=== PATIENT | female | born 1975 | race Caucasian/White ===

== ENCOUNTER → 2017-02-16 | Outpatient (REF) | payer OTHER | LOC: M SFHCWAGY 15:02 | PROVIDERS: ATTEND Family Medicine | DX: Z12.4 Encounter for screening for malignant neoplasm of cervix (principal) ==

== ENCOUNTER → 2017-02-16 | Outpatient (CLI) | payer BC, OTHER ==
--- NOTE | 2017-02-16 16:04 | REPMRS ---
Patient History The patient states she has not had a clinical breast exam in over a year. Patient is postmenopausal. No known family history of cancer. Digital Woman Screen Mammo: February 16, 2017 - Exam #: [id number] Bilateral CC and MLO view(s) were taken. Technologist: Esther Ruff, Technologist Prior study comparison: December 03, 2015, digital woman screen mammo performed at [facility]. FINDINGS: The breast tissue is heterogeneously dense. This may lower the sensitivity of mammography. This mammogram was interpreted with the aid of an FDA-approved computer-aided dectection system. A. Negative x-ray reports should not delay biopsy if a dominant or clinically suspicious mass is present. B. Not all cancers are identified by mammography. C. Adenosis and dense breast may obscure an underlying neoplasm. No significant changes when compared with prior studies. ASSESSMENT: BI-RADS/ACR category 1 mammogram. Negative. Recommendation Routine screening mammogram in 1 year. Electronically Signed By: Dameon De La O M.D. 02/16/17 [id number]
== END ==
LOC: M WHC 14:15
PROVIDERS: ATTEND Family Medicine
DX: Z12.31 Encounter for screening mammogram for malignant neoplasm of breast (principal)

== ENCOUNTER → 2018-01-31 | Outpatient (REF) | payer OTHER ==
[2018-01-31 15:42] LABS: HEMATOCRIT 44.7 % (36.0-47.0); HEMOGLOBIN 14.9 g/dl (12.0-15.5); MEAN CORPUSCULAR HEMOGLOBIN 32.4 pg (27.0-33.0); MEAN CORPUSCULAR HGB CONC 33.3 g/dl (32.0-36.5); MEAN CORPUSCULAR VOLUME 97.2 fl (80.0-96.0); PLATELET COUNT, AUTOMATED 297 10^3/uL (150-450); RED CELL DISTRIBUTION WIDTH 14.1 % (11.5-14.5); WHITE BLOOD COUNT 11.3 10^3/uL (4.0-10.0)
[2018-01-31 16:11] LABS: FOLLICLE STIMULATING HORMONE 9.5 mIU/mL
== END ==
LOC: M SFHCWAGY 15:26
DX: E28.310 Symptomatic premature menopause (principal); N95.0 Postmenopausal bleeding

== ENCOUNTER → 2018-02-04 | Outpatient (CLI) | payer BC | LOC: M WHC 10:55 | DX: N95.0 Postmenopausal bleeding (principal) | CPT/HCPCS: 76830 ==

== ENCOUNTER → 2018-02-08 | Outpatient (REF) | payer OTHER | LOC: M SFHCWAGY 11:48 | DX: N95.0 Postmenopausal bleeding (principal) ==

== ENCOUNTER → 2018-11-26 | Outpatient (CLI) | payer BC, OTHER ==
--- NOTE | 2018-11-26 13:14 | REP ---
CHEST, TWO VIEWS: Two views of the chest are performed and compared to prior studies, most recently 02/16/2016. There is mild cardiomegaly. I see no acute infiltrate. Chronic interstitial prominence is stable in the lung bases bilaterally. The mediastinal silhouette is unchanged. Multiple metallic clips are seen in the upper abdomen. IMPRESSION: Mild cardiomegaly. No acute infiltrate. Electronically Signed by Dameon Avendaño MD 11/27/2018 04:39 P
== END ==
LOC: M LRY 12:36
PROVIDERS: ATTEND Nurse Practitioner Family
DX: R06.2 Wheezing (principal); I51.7 Cardiomegaly

== ENCOUNTER → 2018-12-19 | Outpatient (REF) | payer OTHER ==
[2018-12-19 16:06] LABS: ALBUMIN 3.6 GM/DL (3.2-5.2); ALT/SGPT 27 U/L (12-78); BILIRUBIN,TOTAL 0.4 MG/DL (0.2-1.0); BLOOD UREA NITROGEN 15 MG/DL (7-18); CALCIUM LEVEL 8.9 MG/DL (8.5-10.1); CARBON DIOXIDE LEVEL 29 MEQ/L (21-32); CHLORIDE LEVEL 106 MEQ/L (98-107); CREATININE FOR GFR 0.62 MG/DL (0.55-1.30); GLOMERULAR FILTRATION RATE > 60.0 (>58); GLUCOSE, FASTING 88 MG/DL (70-100); POTASSIUM SERUM 4.6 MEQ/L (3.5-5.1); SODIUM LEVEL 140 MEQ/L (136-145); TOTAL PROTEIN 6.1 GM/DL (6.4-8.2)
[2018-12-19 16:16] LABS: HEMOGLOBIN A1c 5.5 %
== END ==
LOC: M LAB REF 15:45
PROVIDERS: ATTEND Nurse Practitioner Family
DX: R73.09 Other abnormal glucose (principal)

== ENCOUNTER → 2019-01-22 | Outpatient (REF) | payer OTHER | LOC: M LAB REF 12:13 | PROVIDERS: ATTEND Nurse Practitioner Family | DX: D35.02 Benign neoplasm of left adrenal gland (principal) ==

== ENCOUNTER → 2019-01-29 | Outpatient (REF) | payer OTHER | LOC: M LAB REF 11:47 | PROVIDERS: ATTEND Nurse Practitioner Family | DX: D35.02 Benign neoplasm of left adrenal gland (principal) ==

== ENCOUNTER → 2019-02-12 | Outpatient (REF) | payer OTHER | LOC: M LAB REF 12:35 | PROVIDERS: ATTEND Nurse Practitioner Family | DX: D35.02 Benign neoplasm of left adrenal gland (principal) ==

== ENCOUNTER → 2019-09-28 | Outpatient (CLI) | payer BC, OTHER ==
--- NOTE | 2019-09-28 10:23 | REP ---
CHEST, TWO VIEWS: COMPARISON: 11/26/2018 Mild, scattered interstitial opacities are stable. No new infiltrate is seen. Heart is upper limits of normal in size. Mediastinal silhouette is unchanged. There are mild degenerative changes of the spine. IMPRESSION: Stable, chronic findings without evidence of acute infiltrate. Electronically Signed by Dameon Avendaño MD 09/28/2019 06:32 P
== END ==
LOC: M LRY 09:32
PROVIDERS: ATTEND Nurse Practitioner Family
DX: J44.1 Chronic obstructive pulmonary disease with (acute) exacerbation (principal)

== ENCOUNTER → 2020-01-15 | Outpatient (REF) | payer OTHER | LOC: M LAB REF 14:26 | PROVIDERS: ATTEND Nurse Practitioner Family | DX: D35.02 Benign neoplasm of left adrenal gland (principal) ==

== ENCOUNTER → 2020-01-22 | Outpatient (REF) | payer OTHER | LOC: M LAB REF 14:55 | PROVIDERS: ATTEND Internal Medicine Endocrinology, Diabetes & Metabolism | DX: D35.02 Benign neoplasm of left adrenal gland (principal) ==

== ENCOUNTER → 2020-07-12 | Outpatient (CLI) | payer OTHER ==
[2020-07-12 17:11] LABS: ALBUMIN 3.7 GM/DL (3.2-5.2); ALT/SGPT 33 U/L (12-78); BILIRUBIN,TOTAL 0.3 MG/DL (0.2-1.0); BLOOD UREA NITROGEN 15 MG/DL (7-18); CALCIUM LEVEL 9.7 MG/DL (8.5-10.1); CARBON DIOXIDE LEVEL 29 MEQ/L (21-32); CHLORIDE LEVEL 105 MEQ/L (98-107); CHOLESTEROL LEVEL 134 MG/DL (<200); CHOLESTEROL RISK RATIO 2.093 (<5); CREATININE FOR GFR 0.75 MG/DL (0.55-1.30); GLOMERULAR FILTRATION RATE > 60.0 (>58); GLUCOSE, FASTING 99 MG/DL (70-100); HDL CHOLESTEROL 64 MG/DL (>40); LDL CHOLESTEROL 45 MG/DL (<100); NON-HDL-C 70 MG/DL; POTASSIUM SERUM 4.1 MEQ/L (3.5-5.1); SODIUM LEVEL 140 MEQ/L (136-145); TOTAL PROTEIN 6.9 GM/DL (6.4-8.2); TRIGLYCERIDES LEVEL 127 MG/DL (<150)
[2020-07-12 18:17] LABS: HEMOGLOBIN A1c 5.8 %
== END ==
LOC: M WUC 11:45
PROVIDERS: ATTEND Student in an Organized Health Care Education/Training Program
DX: I10 Essential (primary) hypertension (principal); Z87.898 Personal history of other specified conditions

== ENCOUNTER → 2020-09-08 | Outpatient (CLI) | payer OTHER | LOC: M WUC 09:17 | PROVIDERS: ATTEND Internal Medicine Endocrinology, Diabetes & Metabolism | DX: D35.02 Benign neoplasm of left adrenal gland (principal) ==

== ENCOUNTER → 2020-09-20 | Outpatient (CLI) | payer OTHER | LOC: M WUC 09:42 | PROVIDERS: ATTEND Internal Medicine Endocrinology, Diabetes & Metabolism | DX: D35.02 Benign neoplasm of left adrenal gland (principal) ==

== ENCOUNTER → 2020-12-21 | Outpatient (CLI) | payer BC, OTHER ==
--- NOTE | 2020-12-21 14:03 | REP ---
INDICATION: SOB, COPD WITH EXACERBATION COMPARISON: 09/28/2019 TECHNIQUE: PA and lateral. FINDINGS: The mediastinum and cardiac silhouette are normal. The lung machado are clear and without acute consolidation, effusion, or pneumothorax. The skeletal structures are intact and normal. IMPRESSION: No acute cardiopulmonary process. If the patient remains symptomatic consider chest CT for further investigation. <Electronically signed by Aleks Gatica > 12/21/20 [id number]
[2020-12-21 16:35] LABS: BASO # 0.1 10^3/uL (0.0-0.2); BASO % 0.6 % (0.0-1.0); EOS % 0.3 % (0.0-3.0); HEMOGLOBIN 14.7 g/dl (12.0-15.5); LYMPH # 1.6 10^3/uL (1.5-5.0); LYMPH % 12.6 % (24.0-44.0); MEAN CORPUSCULAR HEMOGLOBIN 31.2 pg (27.0-33.0); MEAN CORPUSCULAR VOLUME 97.7 fl (80.0-96.0); MONO # 1.1 10^3/uL (0.0-0.8); MONO % 8.7 % (2.0-8.0); NEUTROPHILS # 9.7 10^3/uL (1.5-8.5); NEUTROPHILS % 77.3 % (36.0-66.0); PLATELET COUNT, AUTOMATED 281 10^3/uL (150-450); RED BLOOD COUNT 4.71 10^6/uL (4.00-5.40); WHITE BLOOD COUNT 12.5 10^3/uL (4.0-10.0)
[2020-12-21 16:58] LABS: BLOOD UREA NITROGEN 6 MG/DL (7-18); CALCIUM LEVEL 9.1 MG/DL (8.5-10.1); CARBON DIOXIDE LEVEL 26 MEQ/L (21-32); CHLORIDE LEVEL 106 MEQ/L (98-107); CREATININE FOR GFR 0.58 MG/DL (0.55-1.30); GLOMERULAR FILTRATION RATE > 60.0 (>58); GLUCOSE, FASTING 100 MG/DL (70-100); SODIUM LEVEL 139 MEQ/L (136-145)
== END ==
LOC: M WUC 13:26
PROVIDERS: ATTEND Nurse Practitioner Family
DX: J44.1 Chronic obstructive pulmonary disease with (acute) exacerbation (principal); R06.02 Shortness of breath

== ENCOUNTER 2020-12-22 15:13 | Emergency (ER) | payer BC, OTHER ==
[~2020-12-22] VITALS: Ht 152.4 cm; Wt 95.6 kg
[2020-12-22] MEDS ORDERED: FUROSEMIDE 40MG/4ML VIAL (J1940) IV ONE (17:05)
[2020-12-22 17:29] LABS: BASO % 0.2 % (0.0-1.0); EOS % 0.1 % (0.0-3.0); HEMATOCRIT 45.2 % (36.0-47.0); HEMOGLOBIN 14.8 g/dl (12.0-15.5); LYMPH # 1.3 10^3/uL (1.5-5.0); LYMPH % 8.7 % (24.0-44.0); MEAN CORPUSCULAR HEMOGLOBIN 31.5 pg (27.0-33.0); MEAN CORPUSCULAR HGB CONC 32.7 g/dl (32.0-36.5); MEAN CORPUSCULAR VOLUME 96.2 fl (80.0-96.0); MONO # 1.1 10^3/uL (0.0-0.8); NEUTROPHILS # 12.8 10^3/uL (1.5-8.5); NEUTROPHILS % 83.5 % (36.0-66.0); PLATELET COUNT, AUTOMATED 321 10^3/uL (150-450); WHITE BLOOD COUNT 15.3 10^3/uL (4.0-10.0)
[2020-12-22 17:33] LABS: ALBUMIN 3.4 GM/DL (3.2-5.2); ALT/SGPT 48 U/L (12-78); BILIRUBIN,DIRECT 0.1 MG/DL (0.0-0.2); BILIRUBIN,TOTAL 0.3 MG/DL (0.2-1.0); CK-MB VALUE MASS < 1.0 NG/ML (<3.6); CPK CREATINE PHOSPHOKINASE 77 U/L (26-192); NT-PRO BNP 69 PG/ML (<125); THYROID STIMULATING HORMONE 0.663 uIU/ML (0.358-3.740); THYROXINE (T4) 6.2 UG/DL (4.5-12.0); TOTAL PROTEIN 7.1 GM/DL (6.4-8.2); TROPONIN I < 0.02 NG/ML (< 0.10)
[2020-12-22] MEDS ORDERED: ISOVUE-370 76% 100ML VIAL As Ordered ONE (17:50)
--- NOTE | 2020-12-22 19:02 | REPVR ---
PROCEDURE INFORMATION: Exam: CTA Chest With Contrast Exam date and time: 12/22/2020 6:09 PM Age: 45 years old Clinical indication: Other: SOB; Elevated dimer; R/O pe TECHNIQUE: Imaging protocol: Computed tomographic angiography of the chest with contrast. 3D rendering (Not supervised by radiologist): MIP and/or 3D reconstructed images were created by the technologist. Radiation optimization: All CT scans at this facility use at least one of these dose optimization techniques: automated exposure control; mA and/or kV adjustment per patient size (includes targeted exams where dose is matched to clinical indication); or iterative reconstruction. Contrast material: ISOVUE 370; Contrast volume: 75 ml; Contrast route: INTRAVENOUS (IV); COMPARISON: CR CHEST 2 VIEW 12/21/2020 1:50 PM FINDINGS: Pulmonary arteries: No focal pulmonary artery filling defect to suggest acute pulmonary embolus. Aorta: No thoracic aortic aneurysm or dissection. Lungs: Pulmonary vascular/interstitial pattern does not suggest active pulmonary edema. Emphysematous changes are present within the lungs, and there are patchy ground-glass opacity suggesting multifocal bilateral infectious or inflammatory process without consolidation. No dominant lung mass or endobronchial lesion. Pleural spaces: No pleural effusion or pneumothorax. Heart: No overt cardiac enlargement or abnormal volume of pericardial fluid. Lymph nodes: Small, nonspecific mediastinal nodes are present. Adrenal glands: Left adrenal mass measuring 4 cm consistent with a fat containing benign adenoma. Hounsfield unit density is 4 Hounsfield units Bones/joints: Bony structures show no acute fracture or destructive process. Soft tissues: Unremarkable. IMPRESSION: 1. No evidence of acute pulmonary embolus. 2. Emphysematous changes in the lungs, and subtle bilateral multifocal inflammatory or infectious airspace process. Atypical pneumonia could give this appearance. Electronically signed by: Mike Bell On 12/22/2020 19:02:09 PM
[2020-12-22 19:56] VITALS: BP 129/70
--- NOTE | 2020-12-23 05:49 | ECGEPIP ---
[facility] - ED Test Date: 2020-12-22 Pat Name: CARMEN FITCH Department: Room: - Gender: Female [employer]: : 1975 Requested By: CARMELO HOPKINS Order Number: [id number] Reading MD: Timothy Blanc Measurements Intervals [place] Rate: 82 P: 69 GA: 130 QRS: 42 QRSD: 90 T: 67 QT: 374 QTc: 436 Interpretive Statements Normal sinus rhythm NONSPECIFIC T WAVE ABNORMALITY(S) NO PRIORS FOR COMPARISON Electronically Signed on 12-23-2020 5:49:30 EDT by Timothy Blanc
--- NOTE | 2020-12-25 08:01 | ED PDOC ---
Post-Departure Follow-Up radiology report faxed to Rosetta Marrufo MD December 25, 2020 08:01
== END 2020-12-22 20:00 | disposition home or self-care (01) ==
LOC: M ED 15:13
DX: I50.9 Heart failure, unspecified (principal); J44.9 Chronic obstructive pulmonary disease, unspecified; F17.200 Nicotine dependence, unspecified, uncomplicated; J18.9 Pneumonia, unspecified organism; R22.43 Localized swelling, mass and lump, lower limb, bilateral
CPT/HCPCS: 71275; 80047; 80076; 82550; 82553; 83880; 84436; 84443; 84484; 85025; 93005; 93041; 94760; 96374; 99284; J1940; Q9967

== ENCOUNTER → 2021-01-04 | Outpatient (CLI) | payer OTHER, BC ==
[2021-01-04 15:31] LABS: C REACTIVE PROTEIN QUANTITATIV 0.35 MG/DL (0.00-0.30); RHEUMATOID FACTOR QUANT < 10.0 IU/ML (<15.0)
== END ==
LOC: M WUC 11:03
PROVIDERS: ATTEND Internal Medicine Pulmonary Disease
DX: R91.8 Other nonspecific abnormal finding of lung field (principal)

== ENCOUNTER → 2021-02-17 | Outpatient (CLI) | payer BC, OTHER ==
--- NOTE | 2021-02-18 12:05 | SLEEPCENT ---
DATE: 02/17/2021 ORDERED BY: Johana George MD Nocturnal polysomnography was performed for evaluation of sleep physiology. Eight hours and 41 minutes of data were reviewed. There were 446 minutes of sleep identified. Sleep latency was normal at 10 minutes. REM latency was short at 58 minutes. Sleep architecture showed fragmentation but there were six REM cycles. Overall sleep efficiency was 87%. The electrocardiogram showed a sinus-appearing rhythm with occasional PVCs and average heart rate of 88 beats per minute. EEG showed normal waveforms for wake and sleep. There were 210 respiratory events identified of 10 seconds in duration or greater for an apnea-hypopnea index of 28.3. The events were obstructive, not exclusive to sleep stage nor body posture. Arousals from respiratory events occurred 9.4 times per hour, and oxygen desaturations were seen into the 50s. There was some limb activity noted as well. Many of the limb movements were secondary to respiratory arousals. Limb movement arousal index was 6.6. IMPRESSIONS: Severe obstructive sleep apnea syndrome (G47.33). Apnea-hypopnea index 28.3. RECOMMENDATION: The patient should be encouraged to return to [facility]. In the interim, alcohol and sedative avoidance should be practiced and caution exercised during the operation of motor vehicles. cc: MIKALA MOONEY MD
== END ==
LOC: M SLEEP 20:00
PROVIDERS: ATTEND Internal Medicine Pulmonary Disease
DX: G47.30 Sleep apnea, unspecified (principal)

== ENCOUNTER → 2021-03-18 | Outpatient (CLI) | payer BC, OTHER ==
--- NOTE | 2021-03-27 20:04 | SLEEPCENT ---
NOCTURNAL POLYSOMNOGRAPHY DATE: 03/18/2021 ORDERED BY: Johana George MD Nocturnal polysomnography was performed for the titration of pressure therapy in this patient with obstructive sleep apnea syndrome with apnea-hypopnea index of 28.3. For testing, the patient was fit with a ResMed F30 full face mask of medium size was used, 4 cm of water pressure were initially applied to the circuit, and the lights were extinguished. 8 hours and 12 minutes of data were reviewed. There were 426.5 minutes of sleep identified. Sleep latency was short at 5 minutes. REM latency was short at 32 minutes. Sleep architecture was good with 6 REM cycles noted. Overall sleep efficiency was 88%. The electrocardiogram showed a sinus rhythm with an average heart rate of 78 beats per minute. EEG showed normal waveforms for wake and sleep. Persistence of respiratory events prompted increases in pressure therapy. Best sleep was seen at a CPAP pressure of 13. There were some mild hypopneic events persisting. Saturations remained 86% plus at this pressure level. IMPRESSION: Obstructive sleep apnea syndrome (G47.33). RECOMMENDATION: Nightly use of pressure therapy 13 cm of water. COMMENT: Given the persistence of hypopneic events, close clinical follow-up will be necessary and retitration may be needed if clinical response is not forthcoming.
== END ==
LOC: M SLEEP 19:56
PROVIDERS: ATTEND Internal Medicine Pulmonary Disease
DX: G47.33 Obstructive sleep apnea (adult) (pediatric) (principal)

== ENCOUNTER → 2021-03-28 | Outpatient (CLI) | payer BC, OTHER ==
--- NOTE | 2021-03-30 06:08 | REP ---
INDICATION: OTHER NONSPECIFC ABNORMAL FINDING COMPARISON: 12/22/2020 TECHNIQUE: Axial noncontrast images from the thoracic inlet to the upper abdomen with coronal and sagittal reformations. This CT examination was performed using the following dose reduction techniques: Automated exposure control, adjustment of mA and/or kv according to the patient's size, and use of iterative reconstruction technique. FINDINGS: Lung machado again demonstrate moderate emphysematous changes and minimal scattered scarring. Previously noted scattered multifocal infiltrates have resolved. No acute consolidation. Few small 2-3 mm scattered nodular densities are likely chronic but may have been partially obscured by previously noted infiltrates. No effusion. No pneumothorax. Mediastinum demonstrates normal thoracic aorta, pulmonary vasculature, and heart/pericardium. Tracheobronchial tree is patent. No significant adenopathy. Visualized portions of the thyroid gland are normal. Upper abdomen demonstrates hepatosteatosis and stable left adrenal adenoma along with prior cholecystectomy. Musculoskeletal structures intact and without acute osseous abnormality. IMPRESSION: 1. Few small 2-3 mm nodules. Consider 6-9 month follow-up examination to confirm stability. 2. Previously noted subtle airspace disease resolved. 3. Stable left adrenal adenoma. Mild hepatosteatosis. <Electronically signed by Aleks Gatica > 03/30/21 [id number]
== END ==
LOC: M RAD 14:59
PROVIDERS: ATTEND Internal Medicine Pulmonary Disease
DX: R91.8 Other nonspecific abnormal finding of lung field (principal)

== ENCOUNTER → 2021-06-02 | Outpatient (CLI) | payer OTHER, BC ==
[2021-06-02 12:21] LABS: BLOOD UREA NITROGEN 13 MG/DL (7-18); CARBON DIOXIDE LEVEL 33 MEQ/L (21-32); CHLORIDE LEVEL 98 MEQ/L (98-107); CREATININE FOR GFR 0.84 MG/DL (0.55-1.30); GLOMERULAR FILTRATION RATE > 60.0 (>58); GLUCOSE, FASTING 86 MG/DL (70-100); POTASSIUM SERUM 3.5 MEQ/L (3.5-5.1); SODIUM LEVEL 139 MEQ/L (136-145)
== END ==
LOC: M WUC 09:57
PROVIDERS: ATTEND Student in an Organized Health Care Education/Training Program
DX: I10 Essential (primary) hypertension (principal)

== ENCOUNTER → 2021-11-01 | Outpatient (REF) | payer OTHER, BC | LOC: M SFHCLERA 13:12 | PROVIDERS: ATTEND Family Medicine | DX: R05.9 Cough, unspecified (principal) ==

== ENCOUNTER → 2021-12-12 | Outpatient (CLI) | payer BC, OTHER | LOC: M PLAIMG 12:50 | PROVIDERS: ATTEND Internal Medicine Pulmonary Disease | DX: J43.2 Centrilobular emphysema (principal) ==

== ENCOUNTER → 2021-12-16 | Outpatient (CLI) | payer BC, OTHER ==
[2021-12-16 12:20] LABS: BASO # 0.1 10^3/uL (0.0-0.2); BASO % 0.7 % (0.0-1.0); EOS # 0.3 10^3/uL (0.0-0.5); EOS % 1.8 % (0.0-3.0); HEMATOCRIT 44.6 % (36.0-47.0); HEMOGLOBIN 14.8 g/dl (12.0-15.5); LYMPH # 3.6 10^3/uL (1.5-5.0); LYMPH % 26.4 % (24.0-44.0); MEAN CORPUSCULAR HEMOGLOBIN 31.7 pg (27.0-33.0); MEAN CORPUSCULAR HGB CONC 33.2 g/dl (32.0-36.5); MEAN CORPUSCULAR VOLUME 95.5 fl (80.0-96.0); MONO # 1.2 10^3/uL (0.0-0.8); NEUTROPHILS # 8.4 10^3/uL (1.5-8.5); NEUTROPHILS % 61.6 % (36.0-66.0); PLATELET COUNT, AUTOMATED 284 10^3/uL (150-450); RED BLOOD COUNT 4.67 10^6/uL (4.00-5.40); WHITE BLOOD COUNT 13.6 10^3/uL (4.0-10.0)
[2021-12-16 12:50] LABS: ALBUMIN 3.6 GM/DL (3.2-5.2); ALT/SGPT 43 U/L (12-78); BLOOD UREA NITROGEN 11 MG/DL (7-18); CALCIUM LEVEL 8.8 MG/DL (8.5-10.1); CARBON DIOXIDE LEVEL 31 MEQ/L (21-32); CHLORIDE LEVEL 100 MEQ/L (98-107); CHOLESTEROL LEVEL 116 MG/DL (<200); CHOLESTEROL RISK RATIO 2.521 (<5); CREATININE FOR GFR 0.66 MG/DL (0.55-1.30); GLOMERULAR FILTRATION RATE > 60.0 (>58); GLUCOSE, FASTING 86 MG/DL (70-100); HDL CHOLESTEROL 46 MG/DL (>40); LDL CHOLESTEROL 44 MG/DL (<100); NON-HDL-C 70 MG/DL; POTASSIUM SERUM 3.2 MEQ/L (3.5-5.1); SODIUM LEVEL 139 MEQ/L (136-145); TOTAL PROTEIN 6.5 GM/DL (6.4-8.2); TRIGLYCERIDES LEVEL 130 MG/DL (<150)
[2021-12-16 14:20] LABS: HEMOGLOBIN A1c 5.9 %
== END ==
LOC: M WUC 10:41
PROVIDERS: ATTEND Student in an Organized Health Care Education/Training Program
DX: Z00.00 Encounter for general adult medical examination without abnormal findings (principal); I10 Essential (primary) hypertension; R73.03 Prediabetes

== ENCOUNTER → 2022-01-17 | Outpatient (REF) | payer BC, OTHER | LOC: M LAB REF 16:39 | PROVIDERS: ATTEND Internal Medicine Pulmonary Disease | DX: J43.1 Panlobular emphysema (principal) ==

== ENCOUNTER → 2022-02-06 | Outpatient (CLI) | payer BC, OTHER | LOC: M LAB 11:40 | PROVIDERS: ATTEND Internal Medicine Pulmonary Disease | DX: Z01.89 Encounter for other specified special examinations (principal) ==

== ENCOUNTER 2022-09-19 12:45 | Inpatient (IN) | payer BC, OTHER ==
[~2022-09-19] VITALS: Ht 149.9 cm; Wt 95.5 kg
[2022-09-19 13:42] LABS: BASO # 0.1 10^3/uL (0.0-0.2); BASO % 0.5 % (0.0-1.0); EOS # 0.1 10^3/uL (0.0-0.5); EOS % 0.9 % (0.0-3.0); HEMATOCRIT 41.8 % (36.0-47.0); LYMPH # 1.6 10^3/uL (1.5-5.0); LYMPH % 11.7 % (24.0-44.0); MEAN CORPUSCULAR HGB CONC 33.5 g/dl (32.0-36.5); MEAN CORPUSCULAR VOLUME 95.4 fl (80.0-96.0); MONO # 0.9 10^3/uL (0.0-0.8); MONO % 6.8 % (2.0-8.0); NEUTROPHILS # 10.8 10^3/uL (1.5-8.5); NEUTROPHILS % 79.6 % (36.0-66.0); PLATELET COUNT, AUTOMATED 308 10^3/uL (150-450); RED BLOOD COUNT 4.38 10^6/uL (4.00-5.40); WHITE BLOOD COUNT 13.6 10^3/uL (4.0-10.0)
[2022-09-19 13:54] LABS: INR 0.92; PROTHROMBIN TIME 12.6 SECONDS (12.5-14.5)
[2022-09-19 13:55] LABS: PARTIAL THROMBOPLASTIN TIME 27.5 SECONDS (24.8-34.2)
[2022-09-19 14:05] LABS: LIPASE 24 U/L (12-53)
[2022-09-19 14:07] LABS: CPK CREATINE PHOSPHOKINASE 60 U/L (34-145)
[2022-09-19 14:11] LABS: ALBUMIN 3.5 G/DL (3.2-5.2); ALKALINE PHOSPHATASE 62 U/L (46-116); ALT/SGPT 42 U/L (7.0-40); AST/SGOT 33 U/L (<34); BILIRUBIN,DIRECT 0.3 MG/DL (<0.4); BILIRUBIN,TOTAL 0.9 MG/DL (0.3-1.2); CK-MB VALUE MASS < 1.0 NG/ML (<3.6); FREE T4 0.98 NG/DL (0.89-1.76); MB/CK RELATIVE INDEX 1.66 (< OR =4); THYROID STIMULATING HORMONE 2.038 uIU/ML (0.55-4.78); TOTAL PROTEIN 6.5 G/DL (5.7-8.2)
[2022-09-19 15:33] LABS: CK-MB VALUE MASS < 1.0 NG/ML (<3.6)
[2022-09-19 15:35] LABS: CPK CREATINE PHOSPHOKINASE 67 U/L (34-145); MB/CK RELATIVE INDEX 1.49 (< OR =4)
[2022-09-19] MEDS ORDERED: ISOVUE-370 76% 100ML VIAL As Ordered ONE (16:00)
[2022-09-19] MEDS ORDERED: MORPHINE 4 MG/ML 1ML VIAL IV ONE (16:10)
[2022-09-19] MEDS ORDERED: LevoFLOXacin IV 750 MG in IV 1 EA IV ONE (17:40)
[2022-09-19] MEDS ORDERED: POTASSIUM CHLORIDE 10MEQ SR TABLET PO ONE (18:25)
[2022-09-19 19:15] VITALS: BP 110/57
[2022-09-19 19:56] LABS: RSV AMPLIFICATION NEGATIVE (NEGATIVE)
[2022-09-19] MEDS ORDERED: TREL1AER INH (21:46)
[2022-09-19] MEDS ORDERED: HYDR-3363 PO (21:46)
[2022-09-19] MEDS ORDERED: LOSA100T8 PO (21:46)
[2022-09-19] MEDS ORDERED: VITMTA PO (21:46)
[2022-09-19] MEDS ORDERED: ALBU8.5H INH (21:46)
[2022-09-19] MEDS ORDERED: HOME MED LIST COMPLETE! XX SCH (21:50)
[2022-09-19] MEDS ORDERED: MOM 30ML SUSPENSION UDC PO PRN (21:55)
[2022-09-19] MEDS ORDERED: ACETAMINOPHEN TAB 650MG DOSE (2X325MG) PO PRN (21:55)
[2022-09-20] MEDS ORDERED: cefTRIAXone SOD 1 GM in D5W MINI-BAG PLUS 50 ML IV SCH (08:00)
[2022-09-20] MEDS ORDERED: ENOXAPARIN 40MG/0.4ML SYRINGE (J1650 PER 10MG) SC SCH (09:00)
[2022-09-20] MEDS ORDERED: DOXYCYCLINE HYCLATE 100MG TABLET PO SCH (09:00)
== END 2022-09-19 22:33 | disposition left against medical advice (07) | DRG 203 ==
LOC: M ED 12:45 → EDBD 12:45 → M ED INP 21:52
PROVIDERS: ADMIT Family Medicine; ATTEND Family Medicine
DX: R07.2 Precordial pain (principal); J15.9 Unspecified bacterial pneumonia; J44.9 Chronic obstructive pulmonary disease, unspecified; I10 Essential (primary) hypertension; E66.9 Obesity, unspecified; Z90.49 Acquired absence of other specified parts of digestive tract; F17.200 Nicotine dependence, unspecified, uncomplicated; R09.02 Hypoxemia; Z79.899 Other long term (current) drug therapy

== ENCOUNTER → 2023-02-01 | Outpatient (CLI) | payer BC, OTHER ==
[~2023-02-01] MED LIST: ALBU8.5H INH; HYDR-3363 PO; LOSA100T8 PO; TREL1AER INH; VITMTA PO
[2023-02-01 12:46] LABS: ALBUMIN 3.5 G/DL (3.2-5.2); ALKALINE PHOSPHATASE 50 U/L (46-116); ALT/SGPT 29 U/L (7.0-40); AST/SGOT 19 U/L (<34); BILIRUBIN,TOTAL 0.6 MG/DL (0.3-1.2); BLOOD UREA NITROGEN 10 MG/DL (9-23); CALCIUM LEVEL 9.7 MG/DL (8.5-10.1); CARBON DIOXIDE LEVEL 32 MMOL/L (20-31); CHLORIDE LEVEL 104 MMOL/L (98-107); CHOLESTEROL LEVEL 103 MG/DL (<200); CHOLESTEROL RISK RATIO 2.83 (<5); CREATININE FOR GFR 0.58 MG/DL (0.55-1.30); GLOMERULAR FILTRATION RATE > 60.0 (>51); GLUCOSE, FASTING 99 MG/DL (60-100); HDL CHOLESTEROL 36.3 MG/DL (>40); LDL CHOLESTEROL 43.5 MG/DL (<100); NON-HDL-C 66.7 MG/DL; POTASSIUM SERUM 3.4 MMOL/L (3.5-5.1); SODIUM LEVEL 139 MMOL/L (136-145); TOTAL PROTEIN 6.2 G/DL (5.7-8.2); TRIGLYCERIDES LEVEL 116 MG/DL (<150)
[2023-02-01 12:50] LABS: HEMOGLOBIN A1c 5.5 % (4.0-6.0)
== END ==
LOC: M WUC 10:20
PROVIDERS: ATTEND Student in an Organized Health Care Education/Training Program
DX: I10 Essential (primary) hypertension (principal); R73.03 Prediabetes

== ENCOUNTER → 2023-02-08 | Outpatient (CLI) | payer BC, OTHER | LOC: M SOG 07:51 | PROVIDERS: ATTEND Orthopaedic Surgery | DX: M54.50 Low back pain, unspecified (principal) ==

== ENCOUNTER → 2023-02-08 | Outpatient (CLI) | payer BC, OTHER | LOC: M PLAIMG 09:45 | PROVIDERS: ATTEND Student in an Organized Health Care Education/Training Program | DX: R91.8 Other nonspecific abnormal finding of lung field (principal) ==

== ENCOUNTER → 2023-03-02 | Outpatient (CLI) | payer BC, OTHER | LOC: M PLAIMG 12:42 | PROVIDERS: ATTEND Orthopaedic Surgery | DX: M43.17 Spondylolisthesis, lumbosacral region (principal); M54.50 Low back pain, unspecified ==

== ENCOUNTER → 2023-05-08 | Outpatient (CLI) | payer OTHER, BC | LOC: M PLALAB 13:16 | PROVIDERS: ATTEND Internal Medicine Pulmonary Disease | DX: R05.9 Cough, unspecified (principal) ==

== ENCOUNTER → 2023-05-11 | Outpatient (CLI) | payer OTHER, BC | LOC: M WUC 11:17 | PROVIDERS: ATTEND Orthopaedic Surgery Orthopaedic Surgery of the Spine | DX: F17.200 Nicotine dependence, unspecified, uncomplicated (principal); M54.50 Low back pain, unspecified; Z01.818 Encounter for other preprocedural examination ==

== ENCOUNTER → 2023-05-30 | Outpatient (CLI) | payer OTHER, BC | LOC: M PLAIMG 11:15 | PROVIDERS: ATTEND Physician Assistant | DX: R91.8 Other nonspecific abnormal finding of lung field (principal) ==

== ENCOUNTER → 2024-05-09 | Outpatient (CLI) | payer BC | LOC: M RAD 15:03 | PROVIDERS: ATTEND Internal Medicine Pulmonary Disease | DX: Z87.891 Personal history of nicotine dependence (principal) ==

== ENCOUNTER → 2024-05-13 | Outpatient (REF) | LOC: M PLAIMG 13:14 | PROVIDERS: ATTEND Internal Medicine | DX: R52 Pain, unspecified (principal) ==

== ENCOUNTER 2024-06-25 08:52 | Day surgery (SDC) | payer BC ==
[~2024-06-25] VITALS: Ht 152.4 cm; Wt 99.7 kg
[~2024-06-25 08:52] MED LIST changes: +FLUT1BLS8 INH
[2024-06-25] MEDS ORDERED: NEUR300C PO (09:30)
[2024-06-25] MEDS ORDERED: LIDOCAINE 2% 100MG/5ML SDV (FOR ANES.) As Ordered ONE (09:36)
[2024-06-25] MEDS ORDERED: fentaNYL 100 MCG/2 ML INJECTION As Ordered ONE (09:36)
[2024-06-25] MEDS ORDERED: propofoL 500 MG/50 ML VIAL As Ordered ONE (09:37)
[2024-06-25] MEDS ORDERED: propofoL 200 MG/20 ML VIAL As Ordered ONE (10:37)
[2024-06-25 11:16] VITALS: BP 119/58; TEMP 98.5; O2SAT 99
== END 2024-06-25 11:16 | disposition home or self-care (01) ==
LOC: M OPP 08:52
PROVIDERS: ATTEND Surgery
DX: Z12.11 Encounter for screening for malignant neoplasm of colon (principal); Z12.12 Encounter for screening for malignant neoplasm of rectum; D12.5 Benign neoplasm of sigmoid colon; K31.7 Polyp of stomach and duodenum; K29.50 Unspecified chronic gastritis without bleeding; K57.30 Diverticulosis of large intestine without perforation or abscess without bleeding; K64.4 Residual hemorrhoidal skin tags; K64.8 Other hemorrhoids; K31.89 Other diseases of stomach and duodenum; K30 Functional dyspepsia; Z90.49 Acquired absence of other specified parts of digestive tract; J44.89 Other specified chronic obstructive pulmonary disease; G47.30 Sleep apnea, unspecified; N39.3 Stress incontinence (female) (male); Z79.899 Other long term (current) drug therapy; Z87.891 Personal history of nicotine dependence; Z79.51 Long term (current) use of inhaled steroids
CPT/HCPCS: 43239; 45385; 88305; J3010

== ENCOUNTER → 2024-07-11 | Outpatient (CLI) | payer BC ==
[~2024-07-11] MED LIST changes: +NEUR300C PO
== END ==
LOC: M PAIN 13:00
PROVIDERS: ATTEND Nurse Practitioner Family
DX: M96.1 Postlaminectomy syndrome, not elsewhere classified (principal); M51.16 Intervertebral disc disorders with radiculopathy, lumbar region; G89.29 Other chronic pain; J44.9 Chronic obstructive pulmonary disease, unspecified; I10 Essential (primary) hypertension; G47.30 Sleep apnea, unspecified; Z98.1 Arthrodesis status; Z87.891 Personal history of nicotine dependence; Z79.899 Other long term (current) drug therapy; Z88.5 Allergy status to narcotic agent

== ENCOUNTER → 2024-08-15 | Outpatient (CLI) | payer BC ==
[~2024-08-15] MED LIST changes: +ISOVUE-M 300 61% 15ML VIAL As Ordered ONE; +LIDOCAINE 1% SDV 30ML VIAL As Ordered ONE; +NORCO, ANEXSIA 5/325MG TABLET (HYDROcodone/ACETAMINOPHEN) As Ordered ONE; +dexAMETHasone 10MG/1ML VIAL PRES.FREE As Ordered ONE; +diazePAM 5MG TABLET As Ordered ONE
== END ==
LOC: M PAIN 14:30
PROVIDERS: ATTEND Anesthesiology
DX: M96.1 Postlaminectomy syndrome, not elsewhere classified (principal); G89.29 Other chronic pain; I10 Essential (primary) hypertension; J44.9 Chronic obstructive pulmonary disease, unspecified; Z87.891 Personal history of nicotine dependence; Z79.899 Other long term (current) drug therapy; Z88.5 Allergy status to narcotic agent
CPT/HCPCS: 62323; J1100; Q9967

== ENCOUNTER → 2024-11-05 | Outpatient (CLI) | payer BC ==
[~2024-11-05] MED LIST changes: -ISOVUE-M 300 61% 15ML VIAL As Ordered ONE; -LIDOCAINE 1% SDV 30ML VIAL As Ordered ONE; -NORCO, ANEXSIA 5/325MG TABLET (HYDROcodone/ACETAMINOPHEN) As Ordered ONE; -dexAMETHasone 10MG/1ML VIAL PRES.FREE As Ordered ONE; -diazePAM 5MG TABLET As Ordered ONE
== END ==
LOC: M WHC 14:23
PROVIDERS: ATTEND Family Medicine
DX: Z12.31 Encounter for screening mammogram for malignant neoplasm of breast (principal)

== ENCOUNTER 2025-03-17 17:36 | Emergency (ER) | payer BC, OTHER ==
[~2025-03-17] VITALS: Ht 152.4 cm; Wt 98.2 kg
[2025-03-17 18:05] LABS: BASO # 0.1 10^3/uL (0.0-0.2); BASO % 0.4 % (0.0-1.0); EOS # 0.3 10^3/uL (0.0-0.5); EOS % 2.0 % (0.0-3.0); LYMPH # 2.5 10^3/uL (1.5-5.0); LYMPH % 20.0 % (24.0-44.0); MONO # 1.0 10^3/uL (0.0-0.8); MONO % 8.4 % (2.0-8.0); NEUTROPHILS # 8.5 10^3/uL (1.5-8.5); NEUTROPHILS % 68.9 % (36.0-66.0); PLATELET COUNT, AUTOMATED 299 10^3/uL (150-450)
[2025-03-17 18:34] LABS: ALT/SGPT 31 U/L (7.0-40); AST/SGOT 24 U/L (<34); CALCIUM LEVEL 9.6 MG/DL (8.5-10.1); CARBON DIOXIDE LEVEL 28 MMOL/L (20-31); CHLORIDE LEVEL 109 MMOL/L (98-107); CREATININE FOR GFR 0.73 MG/DL (0.55-1.30); GLOMERULAR FILTRATION RATE > 90.0 (>51); POTASSIUM SERUM 4.3 MMOL/L (3.5-5.1); SODIUM LEVEL 144 MMOL/L (136-145)
[2025-03-17 20:00] LABS: KETONE, URINE AUTO RFX NEGATIVE (NEGATIVE); MUCUS, URINE RFX SMALL (NEGATIVE); RBC, URINE AUTO RFX 1 /HPF (0-3); SQUAM EPITHELIAL CELL UR AURFX 2 /HPF (0-6); TRANSITIONAL EPITHELIAL AU RFX <1 /HPF; WBC, URINE AUTO RFX 5 /HPF (0-3)
[2025-03-17 20:01] LABS: LEUKOCYTE ESTERASE UR AUTO RFX TRACE (NEGATIVE); NITRITE, URINE AUTO RFX POSITIVE (NEGATIVE)
[2025-03-17] MEDS: ONDANSETRON 4MG 2ML VIAL IV ONE (20:04)
[2025-03-17] MEDS: KETOROLAC 30 MG/ML 1 ML VIAL IV ONE (20:05)
[2025-03-17] MEDS ORDERED: ISOVUE-370 76% 100 ML VIAL As Ordered ONE (20:11)
[2025-03-17] MEDS: NS (Normal Saline) 0.9% 1,000 ML IV ONE (20:30)
[2025-03-17] MEDS ORDERED: CIPR250T26 PO (21:26)
[2025-03-17] MEDS ORDERED: SUCR1TA PO (21:26)
[2025-03-17] MEDS ORDERED: ONDA-282 PO (21:26)
[2025-03-17 21:45] VITALS: BP 110/58; TEMP 97.4; O2SAT 94
== END 2025-03-17 21:47 | disposition home or self-care (01) ==
LOC: M ED 17:36
DX: N39.0 Urinary tract infection, site not specified (principal); A09 Infectious gastroenteritis and colitis, unspecified; J44.9 Chronic obstructive pulmonary disease, unspecified; F17.210 Nicotine dependence, cigarettes, uncomplicated; Z79.2 Long term (current) use of antibiotics; Z79.51 Long term (current) use of inhaled steroids; Z79.899 Other long term (current) drug therapy; Z79.810 Long term (current) use of selective estrogen receptor modulators (SERMs)
CPT/HCPCS: 74177; 80048; 80076; 81001; 83605; 83690; 84145; 85025; 87088; 87186; 96361; 96374; 96375; 99284; J1885; J2405; Q9967

== ENCOUNTER → 2025-06-17 | Outpatient (REF) | payer OTHER ==
[~2025-06-17] MED LIST changes: +CIPR250T26 PO; +ONDA-282 PO; +SUCR1TA PO
== END ==
LOC: M SFHCLERA 17:05
PROVIDERS: ATTEND Family Medicine
DX: R30.0 Dysuria (principal)

== ENCOUNTER → 2025-07-28 | Outpatient (REF) | payer BC, OTHER | LOC: M SFHCPLAZ 16:54 | PROVIDERS: ATTEND Nurse Practitioner Family | DX: N39.0 Urinary tract infection, site not specified (principal) ==